=== PATIENT | female | born 2005 | race Caucasian/White ===

== ENCOUNTER 2024-08-12 09:04 | Emergency (ER) | payer OTHER, SELFPAY ==
[2024-08-12 09:18] VITALS: BP 108/72; PULSE 93; RESP 18; TEMP 37.3; O2SAT 98; BMI 20.5
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
--- OUTSIDE RECORDS SUMMARY | 2024-08-12 10:04 | XMS_ITS | Encounter Summary ---
Author Organization [employer] [facility] Address [address] [place] [id number] Care Team Providers Care Authorizer Name Role Phone Establish, Need To MD Primary Care Provider [phone] Reason for Visit * Reason Comments Annual Exam Stomach issue Encounter Details Date Type Department Care Team (Late st Contact Info) Description 05/14/2024 1:45 PM CDT Office Visit [facility] Medicine [address] [place] [id number] Silvia Summers PA-C [address] [place] [address] [phone] Wellness examination (Primary Dx); Screening for STDs (sexually transmitted diseases); Autonomic dysfunction; Hereditary essential tremor; Anxiety and depression; Generalized abdominal pain; Diarrhea, unspecified type Social History Tobacco Use Types Packs/Day Years Used Date Smoking Tobacco: Never Passive Smoke Exposure: Never Smokeless Tobacco: Never Alcohol Use Standard Drinks/Week Comments Never 0 (1 standard drink = 0.6 oz pur e alcohol) [facility] Utilities Answer Date Recorded In the past 12 months has [employer] electric, gas, oil, or water company threatened to shut off services in your home? No 05/13/2024 Social Connection and Isolat ion Panel [NHANES] Answer Date Recorded In a typical week, how many times do you talk on the phone with family, friends, or neighbors? More than three times a week 05/13/2024 How often do you get togethe r with friends or relatives? Three times a week 05/13/2024 How often do you attend chur ch or scientology services? Never 05/13/2024 Do you belong to any clubs o r organizations such as catholic groups, unions, fraternal or athletic groups, or school groups? Yes 05/13/2024 How often do you attend meet ings of the clubs or organizations you belong to? More than 4 times per year 05/13/2024 Are you , , di vorced, , never , or living with a partner? Never 05/13/2024 AUDIT-C Answer Date Recorded Q1: How often do you have a drink containing alc ohol? 2-4 times a month 05/13/2024 Q2: How many drinks containi ng alcohol do you have on a typical day when you are drinking? 3 or 4 05/13/2024 Q3: How often do you have si x or more drinks on one occasion? Monthly 05/13/2024 Overall Financial Resource Strain (CARDIA) Answe r Date Recorded How hard is it for you to pa y for the very basics like food, housing, medical care, and heating? Somewhat hard 05/13/2024 [facility] Occupat ional Health - Occupational Stress Questionnaire Answer Date Recorded Do you feel stress - tense, restless, nervous, or anxious, or unable to sleep at night because your mind is troubled all the time - these days? Only a little 05/13/2024 Exercise Vital Sign Answer Date Recorde d On average, how many days pe r week do you engage in moderate to strenuous exercise (like a brisk walk)? 5 days 05/13/2024 On average, how many minutes do you engage in exercise at this level? 30 min 05/13/2024 Hunger Vital Sign Answer Date Recorded Within the past 12 months, y ou worried that your food would run out before you got the money to buy more. Never true 05/13/20 24 Within the past 12 months, t he food you bought just didn't last and you didn't have money to get more. Never true 05/13/2024 PRAPARE - Transportation Answer Date Re corded In the past 12 months, has l ack of transportation kept you from medical appointments or from getting medications? No 05/02 In the past 12 months, has l ack of transportation kept you from meetings, work, or from getting things needed for daily living? No 05/13/2024 Housing Stability Vital Sign Answer Antonio e Recorded In the last 12 months, was t here a time when you were not able to pay the mortgage or rent on time? No 01/03/2023 In the last 12 months, how many places have you lived? 2 01/03/2023 In the last 12 months, was t here a time when you did not have a steady place to sleep or slept in a prison (including now)? No 01/03/2023 Housing Stability Vital Sign Answer Antonio e Recorded In the last 12 months, was t here a time when you were not able to pay the mortgage or rent on time? No 05/13/2024 In the last 12 months, how many places have you lived? 2 05/13/2024 In the last 12 months, was t here a time when you did not have a steady place to sleep or slept in a prison (including now)? No 05/13/2024 Depression (GHS) Answer Date Recorded PHQ2 Not on file 05/14/2024 PHQ4 Not on file 05/14/2024 PHQ-9 TOTAL SCORE 0 05/14/2024 Suicide Risk Alert Not on file 05/14/2024 Sex and Gender Information Value Date Recorded Sex Assigned at Female 03/23/2021 8:56 AM CDT Gender Identity Female 03/23/2021 8:56 AM CDT Sexual Orientation Not on file documented as of this encounter Last Filed Vital Signs Vital Sign Reading Time Taken Comments Blood Pressure 115/62 05/14/2024 1:27 PM CDT Pulse 65 05/14/2024 1:27 PM CDT Temperature - - Respiratory Rate - - Oxygen Saturation - - Inhaled Oxygen Concentration - - Weight 60.8 kg (134 lb) 05/14/2024 1:27 PM CDT Height 172.2 cm (5' 7.8) 05/14/2024 1:27 PM CDT Body Mass Index 20.5 05/14/2024 1:27 PM CDT documented in this encounter Ordered Prescriptions Prescription Sig Dispensed Refills Start Date End Da te sertraline (ZOLOFT) 50 mg tabletIndications:Anxiet y and depression Take 1.5 Tablets (75 mg) by mouth daily with breakfast 45 Tablet 2 05/14/2024 documented in this encounter Progress Notes * Silvia Summers PA-C - 05/14/2024 1:45 PM CDT Charisma Khanna [phone] Primary Care Providers: Establish, Need To, [facility] [place] May 14, 2024 Chief Complaint Patient presents with Annual Exam Stomach issue History of Present Illness: Charisma Schmidt is a 19 y.o. female. She presents for a preventative medicine visit and follow up of her medical problems. 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 Previously seen in Pediatrics. She is leaving to return to college this weekend for summer. 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 She has history of autonomic dysfunction and orthostasis managed with Levi Tavares in Pediatric Cardiology. She has been doing well with metoprolol 50 mg XL BID, symptoms are stable. She has Kyleena IUD, placed June 2021 and will need replacement prior to June 2026. She has history of essential tremor, however she does not report any issues with this today. Acute concerns addressed in clinic today: Roxana would like to discuss some stomach issues today. These have been ongoing. She reports having intermittent abdominal pain symptoms and loose stools, minimal diarrhea. She does have some urgency, no incontinence or bloody stools. No nighttime awakenings. No fevers or chills. No other constitutional symptoms including fever or rashes. She wonders about foot intolerance or IBS. She notes that her mother has IBS symptoms. She denies known FH of celiac or IBD. She notes that her mother bought her a probiotic to start taking. No new medications or new foods/exposures or travel. She also would like to discuss her sertraline. She wonders about going down on the dose. She has been taking 100 mg for some time and she feels her symptoms are managed well. She is happy and doing well. Contracts for safety. Patient Active Problem List Diagnosis Hypermetropia of both eyes Hereditary essential tremor Anxiety and depression Autonomic dysfunction Gynecology history The patient reports the following gynecologic problems: None. Menstrual cycle history: IUD . No LMP recorded. Patient has had an implant. Menstrual flow: not applicable. History of abnormal pap smear: NA . Contraception: IUD Health Maintenance Topic Date Due COVID-19 Vaccine (2022- season) 2023 DEPRESSION PHQ9 11/13/2024 DTaP/Tdap/Td Vaccine (6 - Td or Tdap) 04/06/2025 WELLNESS VISIT 05/14/2025 CHLAMYDIA SCREEN 05/14/2025 LIPID SCREEN 09/26/2026 Hepatitis B Vaccine Completed POLIO (IPV) Vaccine Completed HPV Vaccine Completed INFLUENZA Completed PERTUSSIS Completed PNEUMOCOCCAL AGES 0-64 YEARS Aged Out Depression screenin08/30/2021 4:09 PM 01/02/2022 3:43 PM 01/04/2023 11:04 AM 02/27/2024 5:50 PM 05/14/2024 1:26 PM PHQ9 REVIEW PHQ-9 TOTAL SCORE 3 2 3 1 0 Q9 Thoughts that you would be better off , or of hurting yourself in some way 0 0 0 0 0 Q10 If you checked off any problems, how difficult have these problems made it for you to do your work, take care of things at home, or get along with other people? Somewhat difficult Not difficult at all Not difficult at all Not difficult at all 08/30/2021 4:08 PM 01/02/2022 3:44 PM 01/04/2023 11:04 AM 02/27/2024 5:49 PM 05/14/2024 1:26 PM [id number]-7 SCORE 0 5 1 2 3 Past Medical History: Diagnosis Date Concussion 07/2014 Hereditary essential tremor 08/12/2020 Hypermetropia of both eyes 04/30/2017 Iron deficiency anemia, ferritin improved on supplement 09/26/2021 Stress fracture 2018 Bilateral tibias with soccer; next year in one leg Tachycardia 01/03/2022 At baseline and exaggerated H are response to exercise. Thought to be a form of automatic dysfunction (does not meet criteria for POTS). Past Surgical History: Procedure Laterality Date WISDOM TEETH EXTRACTION 04/2019 Current Outpatient Medications Medication Sig Dispense Refill ACETAMINOPHEN (TYLENOL PO) Take by mouth. cholecalciferol, VITAMIN D3, 2,000 unit capsule Take 1 Capsule (2,000 Units) by mouth daily IBUPROFEN PO Take by mouth. iron bis glycinate (GENTLE IRON) capsule Take 1 Capsule by mouth every other day levonorgestreL (KYLEENA) 17.5 mcg/24 hrs (5 yrs) 19.[address] 1 Each into uterus as directed: 1 Each 0 metoprolol succinate (TOPROL XL) 50 mg extended release tablet Take 1 Tablet (50 mg) by mouth 2 times daily 180 Tablet 4 PAPAIN PO Take by mouth sertraline (ZOLOFT) 50 mg tablet Take 1.5 Tablets (75 mg) by mouth daily with breakfast 45 Tablet 2 No current facility-administered medications for this visit. No Known Drug Allergies Family History Relation Problem Comments Father - José Miguel (Alive) Asthma childhood Mother - Dahiana (Alive) Anxiety Disorder Migraines Sister - Audrey (Alive) Anxiety Disorder Maternal Grandmother Anxiety Disorder Maternal Grandfather Alcohol Abuse Cancer Coronary Artery Disease angina Elevated Lipids Essential Tremor also in his mother Parkinsonism Paternal Grandmother Alcohol Abuse Anxiety Disorder COPD Coronary Artery Disease h/o CA in her mid 60s (with tobacco use history) Heart Attack Paternal Grandfather Diabetes Elevated Lipids Maternal Aunt - Bhavya (Alive) Anxiety Disorder Heart Attack at 42 had pulmonary embolism, with subsequent CA Hypertension Maternal great-grandfather (Alive) Stroke 70s Maternal great-grandmother (Alive) Stroke 80s Other Clotting Disorder Social History Socioeconomic History Marital status: Single Spouse name: Not on file Number of children: Not on file Years of education: Not on file Highest education level: Not on file Occupational History Not on file Tobacco Use Smoking status: Never Passive exposure: Never Smokeless tobacco: Never Vaping Use Vaping status: Never Used Substance and Sexual Activity Alcohol use: Never Drug use: Never Sexual activity: Not Currently Social History Narrative Charisma, (Roxana) is a college student at [employer] in [employer] with a major in geology. Over breaks, she lives at home with parents, José Miguel and Dahiana and her older sister, Audrey, (2005.) They live in [place], José Miguel is a anton and Dahiana is an RN, works for [employer]. She enjoys snowboarding. Review of systems: Reviewed and negative other than was discussed in HPI. Physical Exam BP 115/62 (BP Location: Right arm, Patient Position: Sitting, BP Cuff Size: Small Adult) Pulse 65 Ht 172.2 cm (5' 7.8) Wt 60.8 kg (134 lb) BMI 20.50 kg/m?? Gen: Patient is a well-developed, well-nourished 19 y.o.female in NAD. Alert, oriented, and cooperatively answers questions. Skin: Warm, dry, well-perfused. Intact without lesions or rashes. Appropriate skin turgor. No cyanosis, pallor, or jaundice appreciated. HEENT: Head: NCAT. Scalp pink without lesions or tenderness. Symmetric facial features. Eyes: eyelids, symmetric, no ptosis; conjunctiva pink w/o discharge and sclera white. PERRL. EOMI. Ears: Auricles w/o lesions, masses, or tenderness; canals patent w/o erythema, edema, or tenderness. Hearing grossly intact. Nose: Nares patent bilaterally. Septum midline and nasal mucosa pink and moist w/o erythema, drainage. Mouth/Throat: Buccal mucosa pink and moist w/o lesions or masses. Dentition is good and gingiva pink w/o lesions, erythema, or tenderness. Tongue midline and protrudes symmetrically. Palate rises with phonation and pharynx w/o erythema or exudate. Voice quality appropriate w/o audible hoarseness. Mucous membranes appear moist. Neck: Supple with no tracheal deviation or thyromegaly appreciated. No JVD or lymphadenopathy appreciated. Pulmonary: Breathing unlabored w/o accessory muscle use. CTA bilaterally. CV: RRR; no murmurs, gallops, or rubs appreciated. Breasts: not examined. Abdomen: Bowel sounds present. Soft and non-tender, non-distended. No guarding or rebound. No peritoneal signs. No CVA tenderness. Pelvic exam: exam declined by the patient. Extremities: Full ROM in all extremities bilaterally. No edema to upper or lower extremities. Neuro: Alert and oriented x3; nonfocal. CN II-XII grossly intact. Gait steady without ataxia. Psychiatric: Thought processes coherent and cooperative with appropriate mood and affect. Reports: Recent Results (from the past 168 hour(s)) SARAH CHLAMYDIA RNA Specimen: Vaginal; Swab Result Value Ref Range CHLAMYDIA RNA Negative Negative LAB IMMUNOGLOBULINS IGA Result Value Ref Range IMMUNOGLOBULINS IGA 311 70 - 312 mg/dl LAB TISSUE TRANSGLUTAMINASE ANTIBODY, IGA (REFERRAL) Result Value Ref Range TISSUE TRANSGLUTAMINASE (TTG) AB, IGA <1.02 0.00 - 4.99 FLU LAB LIPASE Result Value Ref Range LIPASE 20 13 - 60 IU/L LAB ELECTROLYTES Result Value Ref Range SODIUM 141 135 - 146 mmol/L POTASSIUM 3.9 3.4 - 5.0 mmol/L CARBON DIOXIDE-TOTAL 31 (H) 22 - 29 mmol/L CHLORIDE 101 96 - 108 mmol/L ANION GAP 9 6 - 16 mmol/L LAB CREATININE Result Value Ref Range CREATININE 0.70 0.51 - 0.95 mg/dL ESTIMATED GFR 127 mL/min/1.73m2 LAB GLUCOSE Result Value Ref Range GLUCOSE 78 70 - 99 mg/dL GLUCOSE HOURS FASTING 1 Hour LAB BILIRUBIN, TOTAL Result Value Ref Range BILIRUBIN, TOTAL 0.5 0.0 - 1.3 mg/dL LAB ALT Result Value Ref Range ALT 16 0 - 33 U/L LAB AST Result Value Ref Range AST 25 0 - 32 U/L LAB ALKALINE PHOSPHATASE Result Value Ref Range ALKP 79 35 - 104 U/L LAB ELECTRONIC CBC Result Value Ref Range WBC 6.63 3.70 - 10.40 K/uL RBC 4.03 4.00 - 5.20 M/uL HEMOGLOBIN 12.9 11.8 - 15.1 g/dL HEMATOCRIT 37.6 36.0 - 46.0 % MCV 93.3 82.0 - 99.0 fL MCH 32.0 27.0 - 32.0 pg MCHC 34.3 32.0 - 36.0 g/dL PLATELET COUNT 273 140 - 385 K/uL RDW-CV 11.7 (L) 11.8 - 15.6 % RDW-SD 40.8 34.0 - 50.0 fL ABS NEUT ELECTRONIC 4.08 2.00 - 8.70 K/uL ABS LYMPH ELECTRONIC 1.92 0.70 - 4.70 K/uL ABS MONO ELECTRONIC 0.49 0.00 - 1.10 K/uL ABS EOS ELECTRONIC 0.11 0.00 - 0.50 K/uL ABS BASO ELECTRONIC 0.02 0.00 - 0.20 K/uL ABS IMMATURE GRAN ELECTRONIC 0.01 0.00 - 0.04 K/uL Assessment & Plan: Assessment 1. Wellness examination 2. Screening for STDs (sexually transmitted diseases) 3. Autonomic dysfunction 4. Hereditary essential tremor 5. Anxiety and depression 6. Generalized abdominal pain 7. Diarrhea, unspecified type Wellness examination History is updated. Health maintenance reviewed and updated. Encouraged healthy lifestyle with plant rich diet and adequate physical activity, at least 150 minutes per week aerobic exercise. Encouraged regular dental cleanings and appropriate sunscreen use. Encouraged routine immunizations: Declines COVID booster today, otherwise UTD. Recommended screening tests: BP: 115/62 DM: glucose ordered with labs today. Cholesterol: UTD, next due 2025. Pap: not indicated due to age. Breast: breast exam not performed today, mammogram not indicated due to age. Screening for STDs (sexually transmitted diseases) - SARAH CHLAMYDIA RNA Autonomic dysfunction - chronic, well controlled with metoprolol, managed with Pediatric Cardiology, Levi Tavares PA-C Hereditary essential tremor - chronic, stable; no reported issues or concern, not on pharmacologic treatment Anxiety and depression - chronic, stable to improved; she has been on sertraline 100 mg however expresses interest in titrating down her dose to see how she does, given taper instructions and new prescription, will start with going down to 75 mg daily for a few weeks, if she is still doing well, she could then try down to 50 mg daily. She is encouraged to reach out with questions or concerns. She will be located in [place] for school and it would be reasonable to do virtual visits to follow-up on her mood, recommended visit in 6-8 weeks for med/mood check - sertraline (ZOLOFT) 50 mg tablet; Take 1.5 Tablets (75 mg) by [facility] Tablet, R-2 Generalized abdominal pain Diarrhea, unspecified type - acute on chronic with unclear etiology at this time - Hemodynamically stable, afebrile, non-toxic appearing in clinic today - reassuring abdominal exam without peritoneal signs, no indication for advanced imaging today - discussed proceeding with labs as below, including celiac ab screen, liver enzymes, lipase, and basic labs with CBC and renal function; will review these results with patient via [employer] and next steps - given chronicity and intermittent nature of symptoms, did forego stool cultures today, however this could be considered; she does not have known risk factors - she has not tried a probiotic or restrictive diet, cutting out gluten or dairy products, could also consider FODMAP diet - If symptoms do not improve with conservative dietary changes, then would discuss endoscopy, potentially upper and lower given the diarrhea symptoms and abdominal discomfort - recommend patient follow-up in next 1-2 months with recheck of symptoms and discussion of next steps in evaluation if indicated - Signs and symptoms to prompt return were discussed and patient expressed their understanding and agreement with the plan; questions solicited and answered to patient satisfaction. - LAB IMMUNOGLOBULINS IGA; Future - LAB TISSUE TRANSGLUTAMINASE ANTIBODY, IGA (REFERRAL); Future - LAB LIPASE; Future - LAB CBC W/DIFF; Future - LAB ELECTROLYTES; Future - LAB CREATININE; Future - LAB GLUCOSE; Future - LAB BILIRUBIN, TOTAL; Future - LAB ALT; Future - LAB AST; Future - LAB ALKALINE PHOSPHATASE; Future Other orders - PAPAIN PO; Take by mouthHistorical Med Orders Placed This Encounter Medications sertraline (ZOLOFT) 50 mg tablet Orders Placed This Encounter Procedures SARAH Chlamydia RNA LAB IMMUNOGLOBULINS IGA Lab Tissue Transglutaminase Antibody, IgA (REFERRAL) LAB LIPASE LAB CBC W/DIFF LAB ELECTROLYTES LAB CREATININE LAB GLUCOSE LAB BILIRUBIN, TOTAL LAB ALT LAB AST LAB ALKALINE PHOSPHATASE Follow-up: Return in about 8 weeks (around 07/09/2024) for recheck mood/sertraline decrease, well in 1 year. Otherwise sooner as needed. Dr. Reece was available for consultation during this visit. Silvia Summers PA-C documented in this encounter Plan of Treatment Not on file documented as of this encounter Procedures Procedure Name Priority Date/Time Associated Diagnosis Comments INFECTIOUS AGENT ANTIGEN DETECTION; CHLAMYDIA DNA/RNA ASSAY Routine 05/14/2024 2:13 PM CDT Screening for STDs (sexually transmitted diseases) documented in this encounter Results * LAB ALKALINE PHOSPHATASE (05/14/2024 2:21 PM CDT) ALKP 79 35 - 104 U/L 05/14/2024 2:57 PM CDT [facility] Blood 05/14/2024 2:21 PM CDT 05/14/2024 2:21 PM CDT Silvia Summers PA-C CHEMISTRY ORDERAB LES [address] [address] * LAB AST (05/14/2024 2:21 PM CDT) AST 25 0 - 32 U/L 05/14/2024 5:15 PM CDT [facility] Blood 05/14/2024 2:21 PM CDT 05/14/2024 2:21 PM CDT Silvia Summers PA-C CHEMISTRY ORDERAB LES Performing Organization Address City/[facility]/ZIP Co de Phone Number [facility] [address] [place] [address] * LAB ALT (05/14/2024 2:21 PM CDT) ALT 16 0 - 33 U/L 05/14/2024 2:57 PM CDT [facility] Blood 05/14/2024 2:21 PM CDT 05/14/2024 2:21 PM CDT Silvia Summers PA-C CHEMISTRY ORDERAB LES Performing Organization Address [facility] Co de Phone Number [address] [address] * LAB BILIRUBIN, TOTAL (05/14/2024 2:21 PM CDT) BILIRUBIN, TOTAL 0.5 0.0 - 1.3 mg/dL 05/14/2024 2:57 PM CDT [facility] Blood 05/14/2024 2:21 PM CDT 05/14/2024 2:21 PM CDT Silvia Summers PA-C CHEMISTRY ORDERAB LES Performing Organization Address [facility] Co de Phone Number [address] [address] * LAB GLUCOSE (05/14/2024 2:21 PM CDT) GLUCOSE 78 70 - 99 mg/dL 05/14/2024 2:57 PM [facility] GLU[facility]RS FASTING 1 Hour 05/14/2024 2:57 PM CDT [facility] Blood 05/14/2024 2:21 PM CDT 05/14/2024 2:21 PM CDT [facility] CHEMISTRY ORDERAB LES Performing Organization Address [facility] Co de Phone Number [address] [address] * LAB CREATININE (05/14/2024 2:21 PM CDT) CREATININE 0.70 0.51 - 0.95 mg/dL 05/14/2024 2:57 PM CDT [facility] ESTIMATED GFR 127 mL/min/1.7 3m2 05/14/2024 2:57 PM CDT [facility] Comment:Estimated GFR calcul ation based on the??Chronic Kidney Disease Epidemiology Collaboration (CKD-EPI) equation refit??without adjustment for race. Blood 05/14/2024 2:21 PM CDT 05/14/2024 2:21 PM CDT Silvia Summers PA-C CHEMISTRY ORDERAB LES Performing Organization Address [facility] Co de Phone Number [address] [address] * (ABNORMAL) LAB ELECTROLYTES (05/14/2024 2:21 PM CDT) SODIUM 141 135 - 146 mmol/L 05/14/2024 2:57 PM CDT [facility] POTASSIUM 3.9 3.4 - 5.0 mmol/L 05/14/2024 2:57 PM CDT [facility] CARBON DIOXIDE-TOTAL 31(H) 22 - 29 mmol/L 05/14/2024 2:57 PM CDT [facility] CHLORIDE 101 96 - 108 mmol/L 05/14/2024 2:57 PM CDT [facility] ANION GAP 9 6 - 16 mmol/L 05/14/2024 2:57 PM CDT [facility] Comment: Anion gap is calculated from Sodium minus the sum of the Chloride and Carbon Dioxide. Blood 05/14/2024 2:21 PM CDT 05/14/2024 2:21 PM CDT Silvia Summers PA-C CHEMISTRY ORDERAB LES Performing Organization Address [facility]/ZIP Co de Phone Number [address] [address] * LAB LIPASE (05/14/2024 2:21 PM CDT) LIPASE 20 13 - 60 IU/L 05/14/2024 2:57 PM CDT [facility] Blood 05/14/2024 2:21 PM CDT 05/14/2024 2:21 PM CDT Silvia Summers PA-C CHEMISTRY ORDERAB LES Performing Organization Address [facility] Co de Phone Number [address] [address] * LAB TISSUE TRANSGLUTAMINASE ANTIBODY, IGA (REFERRAL) (05/14/2024 2:21 PM CDT) TISSUE TRANSGLUTAMINASE (TTG) AB, IGA <1.02 0.00 - 4.99 FLU 05/17/2024 12:30 AM CDT [facility] Comment: INTERPRETIVE INFORMATION: Tissue Transglutaminase (tTG) ?Antibody, IgA Presence of the tissue transglutaminase (tTG) IgA antibody is associated with gluten-sensitive enteropathies such as celiac disease and dermatitis herpetiformis. Individuals with positive results should be confirmed with small intestinal biopsy to establish celiac disease diagnosis. tTG IgA antibody concentrations greater than 50 FLU exhibits higher correlation with results of duodenal biopsies consistent with celiac disease. For antibody concentrations greater than or equal to 5 FLU but less than 10 FLU, additional testing for endomysial (MEENU) IgA concentrations may improve the positive predictive value for disease. A decrease in tTG IgA antibody concentration after initiation of a gluten-free diet may indicate a response to therapy. Performed By: [facility] [address] [place] [address] [employer] Supervisor: Marshall Alves MD, PhD CLIA Number: [id number] Blood 05/14/2024 2:21 PM CDT 05/14/2024 2:21 PM CDT Silvia Summers PA-C REFERRAL ORDERABL ES Performing Organization Address [facility] Co de Phone Number [facility] [address] [place] [address] * LAB IMMUNOGLOBULINS IGA (05/14/2024 2:21 PM CDT) IMMUNOGLOBULINS IGA 311 70 - 312 mg/dl 05/14/2024 5:[address] [facility] Comment:Very high IgA levels (especially if due to a monoclonal gammopathy) may be falsely normal or low due to prozone effect. Please call [phone] for re-analysis if this problem is suspected. Specimens are held for 72 hours for re-analysis. Blood Venipuncture / Unknown 05/14/2024 2:21 PM CDT 05/14/2024 2:21 PM CDT Silvia Summers PA-C CHEMISTRY ORDERAB LES [facility] [address] [place] [address] * SARAH CHLAMYDIA RNA (05/14/2024 2:13 PM CDT) CHLAMYDIA RNA Negative Negative 05/15/2024 11:15 AM CDT [facility] Swab VAGINAL STRUCTURE / Unknown 05/14/2024 2:13 PM CDT 05/14/2024 2:32 PM CDT Narrative [facility] - 05/15/2024 11:15 AM CDT C. trachomatis testing by NAAT. Silvia Summers PA-C MICROBIOLOGY - [facility] ORDERABLES [facility] [address] [place] [address] documented in this encounter Visit Diagnoses Diagnosis Wellness examination- Primary Screening for STDs (sexually transmitted diseases) Screening examination for venereal disease Autonomic dysfunction Unspecified disorder of autonomic nervous system Hereditary essential tremor Essential and other specified forms of tremor Anxiety and depression Dysthymic disorder Generalized abdominal pain Abdominal pain, generalized Diarrhea, unspecified type documented in this encounter Discontinued Medications Medication Sig Discontinue Reason Start Date End Da te omeprazole (PRILOSEC) 20 mg delayed release capsule Take 1 Capsule (20 mg) by mouth daily Therapy completed 02/27/2024 05/14/2024 ascorbic acid, vitamin C, (VITAMIN C) 500 mg tablet Take 1 Tablet (500 mg) by mouth daily Therapy completed 05/14/2024 sertraline (ZOLOFT) 100 mg tablet Take 1 Tablet (100 mg) by mouth daily with breakfast Reorder 04/29/2024 05/14/2024 documented as of this encounter Historical Medications * This list may reflect changes made after this encounter. Medication Sig Dispensed Refills Start Date End Date PAPAIN PO Take by mouth added in this encounter Care Teams Authorizer Relationship Specialty Start Date End Date Establish, Need ToMD [address] [place] [address] PCP - General RUBBER COMPOUNDER 05/11/24 documented as of this encounter
--- OUTSIDE RECORDS SUMMARY | 2024-08-12 10:04 | XMS_ITS | Clinical Summary ---
Author Organization [facility] Address [address] [place] [address] Care Team Providers Care Fraud Analyst Name Role Phone Establish, Need To MD Primary Care Provider [phone] Source Comments If you need additional information that is not available on Care Everywhere, please contact our Medical Records Department during business hours (Saturday - Saturday, 8 am - 5 pm) at . During nonbusiness hours, please contact our Trauma and Emergency Center at .[facility] Allergies No known active allergies Medications * Medications may not be up to date as of this document. Always verify current medications with the patient. Medication Sig Dispensed Refills Start Date End Date Status IBUPROFEN PO Take by mouth. Active ACETAMINOPHEN (TYLENOL PO) Take by mouth. Active levonorgestreL (KYLEENA) 17.5 mcg/24 hrs (5 yrs) 19.[address] 1 Each into uterus as directed: 1 Each 06/29/2021 Active cholecalciferol, VITAMIN D3, 2,000 unit capsule Take 1 Capsule (2,000 Units) by mouth daily Active iron bis glycinate (GENTLE IRON) capsule Take 1 Capsule by mouth every other day 01/30/2024 Active metoprolol succinate (TOPROL XL) 50 mg extended release tablet Take 1 Tablet (50 mg) by mouth 2 times daily 180 Tablet 4 02/13/2024 05/08/2025 Active PAPAIN PO Take by mouth Active sertraline (ZOLOFT) 50 mg tabletIndications: Anxiety and depression Take 1.5 Tablets (75 mg) by mouth daily with breakfast 45 Tablet 2 05/14/2024 Active Active Problems Problem Noted Date Diagnosed Date Autonomic dysfunction 01/04/2023 Anxiety and depression 01/02/2022 Hereditary essential tremor 08/12/2020 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 Thought to be a form of automatic dysfunction (does not meet criteria for POTS). Fatigue 01/02/2022 01/04/2023 Iron deficiency anemia, ferr itin improved on supplement 09/26/2021 01/03/2022 Concussion without loss of consciousness 05/15/2016 09/02/2018 Overview (05/15/2016): Had two concussions in 2013. Concussion 07/02/2014 09/02/2018 Encounters Date Type Department Care Team Description 05/14/2024 2:20 PM CDT Lab Only LAB [address] [address] Silvia Summers PA-C Generalized abdominal pain; Diarrhea, unspecified type 05/14/2024 1:45 PM CDT Office Visit [address] [address] Silvia Summers PA-C Wellness examination (Primary Dx); Screening for STDs (sexually transmitted diseases); Autonomic dysfunction; Hereditary essential tremor; Anxiety and depression; Generalized abdominal pain; Diarrhea, unspecified type 05/14/2024 Interface Meds [address] [address] Silvia Summers PA-C from Last 3 Months Immunizations Name Administration Dates Next Due DTaP 10/18/2010,04/25/2007,05/29/2006 DTaP-Hepatitis B-IPV 08/09/2009,08/09/2009 HPV9 05/10/2017,05/15/2016 Hepatitis A, Unspecified 03/15/2014,10/18/2010 Hepatitis B-Hib 04/25/2007,05/29/2006 Influenza 12/12/2012,09/05/2011,10/18/2010 Influenza MDCK PF Quadrivalent 09/28/2019 Influenza Quadrivalent PF (d ose 0.5 mL) 11/15/2022,08/30/2021,12/01/2020,08/20,10/25/2017 Influenza Trivalent PF 12/12/2012,09/05/2011, Influenza, Unspecified 10/23/2023 MMR Live 10/18/2010,08/09/2009 Meningococcal B-Recombinant 08/12/2020 Meningococcal MCV4P 08/12/2020,04/06/2015 Moderna SARS-CoV-2 Bivalent (12 yrs and older) 09/06/2022 Pfizer SARS-CoV-2 (Purple Cap) 11/21/2021,2020,02/28/2021 Polio Injectable 04/25/2007,05/29/2006 Tdap 04/06/2015,04/25/2007,05/29/2006 Varicella Live 09/01/2006 Surgical History Surgery Date Site/Laterality Comments WISDOM TEETH EXTRACTION 04/01/2019 - 05/01/2019 Medical History Medical History Date Comments Concussion 07/2014 Stress fracture 2018 Bilateral tibias with soccer; next year in one leg Hereditary essential tremor 08/12/2020 Hypermetropia of both eyes 04/30/2017 Iron deficiency anemia, ferr itin improved on supplement 09/26/2021 Tachycardia 01/03/2022 At baseline and exaggerated H are response to exercise. Thought to be a form of automatic dysfunction (does not meet criteria for POTS). Family History Medical History Relation Name Comments Asthma Father José Miguel childhood Anxiety Disorder Maternal Aunt Bhavya Heart Attack Maternal Aunt Bhavya at 42 had pulm onary embolism, with subsequent GA Hypertension Maternal Aunt Bhavya Alcohol Abuse Maternal Grandfather Cancer Maternal Grandfather Coronary Artery Disease Maternal Grandfather angina Elevated Lipids Maternal Grandfather Essential Tremor Maternal Grandfather als o in his mother Parkinsonism Maternal Grandfather Anxiety Disorder Maternal Grandmother Stroke Maternal great-grandfather 7 0s Stroke Maternal great-grandmother 8 0s Anxiety Disorder Mother Junie Migraines Mother Junie Clotting Disorder Other Diabetes Paternal Grandfather Elevated Lipids Paternal Grandfather Alcohol Abuse Paternal Grandmother Anxiety Disorder Paternal Grandmother COPD Paternal Grandmother Coronary Artery Disease Paternal Grandmother h/o GA in her mid 60s (with tobacco use history) Heart Attack Paternal Grandmother Anxiety Disorder Sister Audrey Relation Name Status Comments Father José Miguel Alive Maternal Aunt Bhavya Alive Maternal Grandfather Maternal Grandmother Maternal great-grandfather Alive Maternal great-grandmother Alive Mother Junie Alive Other Paternal Grandfather Paternal Grandmother Sister Audrey Alive Social History Tobacco Use Types Packs/Day Years Used Date Smoking Tobacco: Never Passive Smoke Exposure: Never Smokeless Tobacco: Never Tobacco Cessation:Counseling Given: Not Answered Alcohol Use Standard Drinks/Week Comments Never 0 (1 standard drink = 0.6 oz pur e alcohol) [facility] Utilities Answer Date Recorded In the past 12 months has th e electric, gas, oil, or water company threatened [...] often do you attend chur ch or yazdanism services? Never 05/13/2024 Do you belong to any clubs o r organizations such as evangelical groups, unions, fraternal or athletic groups, or [...] medical care, and heating? Somewhat hard 05/13/2024 [facility] [place] [facility] - Occupational Stress Questionnaire Answer Date [...] place to sleep or slept in a fdc (including now)? No 01/03/2023 Housing Stability Vital [...] place to sleep or slept in a fdc (including now)? No 05/13/2024 Depression ([facility]) Answer Date Recorded PHQ2 Not on file 05/14/2024 PHQ4 Not on file 05/14/2024 PHQ-9 TOTAL SCORE 0 05/14/2024 Suicide Risk Alert Not on file 05/14/2024 Sex and Gender Information Value Date Recorded Sex Assigned at Female 03/23/2021 8:56 AM CDT Gender Identity Female 03/23/2021 8:56 AM CDT Sexual Orientation Not on file Obstetrics History Para Term AB IAB SAB Ectopic Molar Multiple Living Live Births 0 0 0 0 0 0 0 0 0 0 0 0 Last Filed Vital Signs Vital Sign Reading Time Taken Comments Blood Pressure 115/62 05/14/2024 1:27 PM CDT Pulse 65 05/14/2024 1:27 PM CDT Temperature 37.2 ??C (98.9 ??F) 12/28/2019 10:[address] Respiratory Rate 15 12/28/2019 10:12 AM TRAVELING INVENTORY ASSOCIATE Oxygen Saturation 98% 12/28/2019 10:12 AM TRAVELING INVENTORY ASSOCIATE Inhaled Oxygen Concentration - - Weight 60.8 kg (134 lb) 05/14/2024 1:27 PM CDT Height 172.2 cm (5' 7.8) 05/14/2024 1:27 PM CDT Body Mass Index 20.5 05/14/2024 1:27 PM CDT Plan of Treatment Health Maintenance Due Date Last Done Comments COVID-19 Vaccine ( season) 2024 09/06/2022, 11/21/2021, 03/21/2021, Additional history exists Influenza Vaccine (#1) 2024 , 11/15/2022, 08/30/2021, Additional history exists DEPRESSION PHQ9 11/13/2024 05/14/2024, 02/0 12/2021, 08/30/2021, Additional history exists DTaP/Tdap/Td Vaccine (6 - Td or Tdap) 04/06/2025 04/06/2015, 10/18/2010, 08/09/2009, Additional history exists CHLAMYDIA SCREEN 05/14/2025 05/14/2024, 01/04/2023 WELLNESS VISIT 05/14/2025 05/14/2024, 05/02, 01/04/2023, Additional history exists LIPID SCREEN 09/26/2026 09/26/2021 Hepatitis B Vaccine Completed 08/09/2009, 08/09/2009, 04/25/2007, Additional history exists POLIO (IPV) Vaccine Completed 08/09/2009, 08/09/2009, 04/25/2007, Additional history exists PERTUSSIS Completed 04/06/2015, 04/02, 05/29/2006 HPV Vaccine Completed 05/10/2017, 05/15/2016 PNEUMOCOCCAL AGES 0-64 YEARS Aged Out No longer eligible based on patient's age to complete this topic Procedures Procedure Name Priority Date/Time Associated Diagnosis Comments LAB ELECTRONIC CBC Routine 05/14/2024 2: 21 PM CDT Generalized abdominal pain Diarrhea, unspecified type LAB ALKALINE PHOSPHATASE Routine 024 2:21 PM CDT Generalized abdominal pain Diarrhea, unspecified type LAB AST Routine 05/14/2024 2:21 PM CDT Generalized abdominal pain Diarrhea, unspecified type LAB ALT Routine 05/14/2024 2:21 PM CDT Generalized abdominal pain Diarrhea, unspecified type LAB BILIRUBIN, TOTAL Routine 05/14/2024 2:21 PM CDT Generalized abdominal pain Diarrhea, unspecified type LAB GLUCOSE Routine 05/14/2024 2:21 PM CDT Generalized abdominal pain Diarrhea, unspecified type LAB CREATININE Routine 05/14/2024 2:21 PM CDT Generalized abdominal pain Diarrhea, unspecified type LAB ELECTROLYTES Routine 05/14/2024 2:21 PM CDT Generalized abdominal pain Diarrhea, unspecified type LAB CBC W/DIFF Routine 05/14/2024 2:21 PM CDT Generalized abdominal pain Diarrhea, unspecified type LAB LIPASE Routine 05/14/2024 2:21 PM CDT Generalized abdominal pain Diarrhea, unspecified type LAB TISSUE TRANSGLUTAMINASE ANTIBODY, IGA (REFERRAL) Routine 05/14/2024 2:21 PM CDT Generalized abdominal pain Diarrhea, unspecified type LAB IMMUNOGLOBULINS IGA Routine 05/14/20 2:21 PM CDT Generalized abdominal pain Diarrhea, unspecified type INFECTIOUS AGENT ANTIGEN DETECTION; CHLAMYDIA DNA/RNA ASSAY Routine 05/14/2024 2:13 PM CDT Screening for STDs (sexually transmitted diseases) LAB NON HDL CHOLESTEROL LIPID PANEL Routine 09/26/2021 11:08 AM CDT Screening for cholesterol level from Last 3 Months or Most Recently Relevant to Health Maintenance Results * LAB TISSUE TRANSGLUTAMINASE ANTIBODY, IGA (REFERRAL) (05/14/2024 2:21 PM CDT) TISSUE TRANSGLUTAMINASE (TTG) AB, IGA <1.02 0.00 - 4.99 FLU 05/17/2024 12:30 AM CDT [facility] Comment: INTERPRETIVE INFORMATION: Tissue Transglutaminase (tTG) ?Antibody, [...] indicate a response to therapy. Performed By: [facility] [address] [place] [address] Timber Hand: Marshall Alves MD, PhD CLIA Number: [id number] Blood 05/14/2024 2:21 PM CDT 05/14/2024 2:21 PM CDT Silvia Summers PA-C REFERRAL ORDERABL ES [facility] [address] [place] [address] * (ABNORMAL) LAB ELECTRONIC CBC (05/14/2024 2:21 PM CDT) WBC 6.63 3.70 - 10.40 K/uL 05/14/2024 2:[address] [facility] RBC 4.03 4.00 - 5.20 M/uL 05/14/2024 2:[address] [facility] HEMOGLOBIN 12.9 11.8 - 15.1 g/dL 05/14/2024 2:[address] [facility] HEMATOCRIT 37.6 36.0 - 46.0 % 05/14/2024 2:[address] [facility] MCV 93.3 82.0 - 99.0 fL 05/14/2024 2:[address] [facility] MCH 32.0 27.0 - 32.0 pg 05/14/2024 2:[address] [facility] MCHC 34.3 32.0 - 36.0 g/dL 05/14/2024 2:[address] [facility] PLATELET COUNT 273 140 - 385 K/uL 05/14/2024 2:[address] [facility] RDW-CV 11.7(L) 11.8 - 15.6 % 05/14/2024 2:[address] [facility] RDW-SD 40.8 34.0 - 50.0 fL 05/14/2024 2:[address] [facility] ABS NEUT ELECTRONIC 4.08 2.00 - 8.70 K/uL 05/14/2024 2:[address] [facility] ABS LYMPH ELECTRONIC 1.92 0.70 - 4.70 K/uL 05/14/2024 2:[address] [facility] ABS MONO ELECTRONIC 0.49 0.00 - 1.10 K/uL 05/14/2024 2:[address] [facility] ABS EOS ELECTRONIC 0.11 0.00 - 0.50 K/uL 05/14/2024 2:[address] [facility] ABS BASO ELECTRONIC 0.02 0.00 - 0.20 K/uL 05/14/2024 2:[address] [facility] ABS IMMATURE GRAN ELECTRONIC 0.01 0.00 - 0.04 K/uL 05/14/2024 2:[address] [facility] Blood 05/14/2024 2:21 PM CDT 05/14/2024 2:21 PM CDT Silvia Summers PA-C HEMATOLOGY ORDERA BLES Performing Organization Address City/[facility]/ZIP Co de Phone Number [address] [address] * LAB LIPASE (05/14/2024 2:21 PM CDT) LIPASE 20 13 - 60 IU/L 05/14/2024 2:[address] [facility] Blood 05/14/2024 2:21 PM CDT 05/14/2024 2:21 PM CDT Silvia Summers PA-C CHEMISTRY ORDERAB LES [address] [address] * LAB IMMUNOGLOBULINS IGA (05/14/2024 2:21 PM CDT) IMMUNOGLOBULINS IGA 311 70 - 312 mg/dl 05/14/2024 5:18 PM CDT [facility] Comment:Very high IgA levels (especially if due to a monoclonal gammopathy) may be falsely normal or low due to prozone effect. Please call [phone] for re-analysis if this problem is suspected. Specimens are held for 72 hours for re-analysis. Blood Venipuncture / Unknown 05/14/2024 2:21 PM CDT 05/14/2024 2:21 PM CDT Silvia Summers PA-C CHEMISTRY ORDERAB LES Performing Organization Address City/[facility]/ZIP Co de Phone Number [facility] [address] [place] [address] * LAB GLUCOSE (05/14/2024 2:21 PM CDT) GLUCOSE 78 70 - 99 mg/dL 05/14/2024 2:[address] [facility] GLUCOSE HOURS FASTING 1 Hour 05/14/2024 2:[address] [facility] Blood 05/14/2024 2:21 PM CDT 05/14/2024 2:[address] Summers CT- CHEMISTRY ORDERAB LES Performing Organization Address City/[facility]/ZIP Co de Phone Number [place] [phone] [place] [address] * (ABNORMAL) LAB ELECTROLYTES (05/14/2024 2:21 PM CDT) SODIUM 141 135 - 146 mmol/L 05/14/2024 2:[address] [facility] POTASSIUM 3.9 3.4 - 5.0 mmol/L 05/14/2024 2:[address] [facility] CARBON DIOXIDE-TOTAL 31(H) 22 - 29 mmol/L 05/14/2024 2:[address] [facility] CHLORIDE 101 96 - 108 mmol/L 05/14/2024 2:[address] [facility] ANION GAP 9 6 - 16 mmol/L 05/14/2024 2:[address] [facility] Comment: Anion gap is calculated from Sodium minus the sum of the Chloride and Carbon Dioxide. Blood 05/14/2024 2:21 PM CDT 05/14/2024 2:21 PM CDT Silvia Sotoments PA-C CHEMISTRY ORDERAB LES Performing Organization Address [facility]/ZIP Co de Phone Number [address] [address] * LAB CREATININE (05/14/2024 2:21 PM CDT) CREATININE 0.70 0.51 - 0.95 mg/dL 05/14/2024 2:[address] [facility] ESTIMATED GFR 127 mL/min/1.7 3m2 05/14/2024 2:[address] [facility] Comment:Estimated GFR calcul ation based on the??Chronic Kidney Disease Epidemiology Collaboration (CKD-EPI) equation refit??without adjustment for race. Blood 05/14/2024 2:21 PM CDT 05/14/2024 2:21 PM CDT Silvia Sotoments PA-C CHEMISTRY ORDERAB LES Performing Organization Address [facility] Co de Phone Number [address] [address] * LAB BILIRUBIN, TOTAL (05/14/2024 2:21 PM CDT) BILIRUBIN, TOTAL 0.5 0.0 - 1.3 mg/dL 05/14/2024 2:[address] [facility] Blood 05/14/2024 2:21 PM CDT 05/14/2024 2:21 PM CDT Silvia Summers PA-C CHEMISTRY ORDERAB LES Performing Organization Address [facility]/ZIP Co de Phone Number [address] [place] [address] * LAB AST (05/14/2024 2:21 PM CDT) AST 25 0 - 32 U/L 05/14/2024 5:15 PM CDT [facility] Blood 05/14/2024 2:21 PM CDT 05/14/2024 2:21 PM CDT Silvia Summers PA-C CHEMISTRY ORDERAB LES [facility] [address] [place] [address] * LAB ALT (05/14/2024 2:21 PM CDT) ALT 16 0 - 33 U/L 05/14/2024 2:[address] [facility] Blood 05/14/2024 2:21 PM CDT 05/14/2024 2:21 PM CDT Silvia Summers PA-C CHEMISTRY ORDERAB LES Performing Organization Address City/[facility]/ZIP Co de Phone Number [address] [address] * LAB ALKALINE PHOSPHATASE (05/14/2024 2:21 PM CDT) ALKP 79 35 - 104 U/L 05/14/2024 2:[address] [facility] Blood 05/14/2024 2:21 PM CDT 05/14/2024 2:21 PM CDT Silvia Summers PA-C CHEMISTRY ORDERAB LES Performing Organization Address [facility]/ZIP Co de Phone Number [address] [address] * SARAH CHLAMYDIA RNA (05/14/2024 2:13 PM CDT) CHLAMYDIA RNA Negative Negative 05/15/2024 11:15 AM CDT [facility] Swab VAGINAL STRUCTURE / Unknown 05/14/2024 2:13 PM CDT 05/14/2024 2:32 PM CDT Narrative [facility] - 05/15/2024 11:15 AM CDT C. trachomatis testing by NAAT. Silvia Summers PA-C MICROBIOLOGY - GE NERAL ORDERABLES Performing Organization Address City/[facility] Co de Phone Number [facility] [address] [place] [address] * LAB NON HDL CHOLESTEROL LIPID PANEL (09/26/2021 11:08 AM CDT) CHOLESTEROL 176 mg/dL 09/26/2021 11:47 AM CDT [facility] HDL CHOLESTEROL 60 mg/dL 11:47 AM CDT [facility] NON HDL CHOLESTEROL 116 <=119 mg/dL 09/26/2021 11:47 AM CDT [facility] Blood 09/26/2021 11:0 8 AM CDT 09/26/2021 11:26 AM CDT Narrative [facility] - 09/26/2021 11:47 AM CDT Interpretation: Total Cholesterol: Desirable; less than 170 mg/dL HDL Cholesterol: Desirable; greater than 39 mg/dL Non-HDL Cholesterol: Desirable; less than 120 mg/dL ? Borderline; 120 to 144 mg/dL ? High; greater than 144 mg/dL Levi Tavares PA-C CHEMISTRY ORDERABL ES Performing Organization Address City/[facility]/ZIP Co de Phone Number [facility] [address] [place] [address] from Last 3 Months or Most Recently Relevant to Health Maintenance Care Teams Fraud Analyst Relationship Specialty Start Date End Date Establish, Need To, [address] [place] [address] PCP - General GAUGE MAKER 05/11/24
--- OUTSIDE RECORDS SUMMARY | 2024-08-12 10:04 | XMS_ITS | Encounter Summary ---
Author Organization [facility] Address [address] [place] [address] Care Team Providers Care Art Class Model Name Role Phone Establish, Need To MD Primary Care Provider [phone] Reason for Visit * Reason Comments Medication Refill Encounter Details Date Type Department Care Team (Late st Contact Info) Description 11/22/2023 Refill [place] - [facility] [address] [place] [id number] Levi Tavares PA-C [address] [place] [phone] Medication Refill Social History Tobacco Use Types Packs/Day Years Used Date Smoking Tobacco: Never Smokeless Tobacco: Never Alcohol Use Standard Drinks/Week Comments Never 0 (1 standard drink = 0.6 oz pur e alcohol) Social Connection and Isolation Panel [NHANES] A nswer Date Recorded In a typical week, how many times do you talk on the phone with family, friends, or neighbors? Twice a week 01/03/2023 Frequency of Social Gatherings with Friends and Family Not on file 01/03/2023 Attends Sikhism Services Not on file 01/03 Active Member of Clubs or Organizations Not on f ile 01/03/2023 Attends Club or Organization Meetings Not on carla e 01/03/2023 Marital Status Not on file 01/03/2023 AUDIT-C Answer Date Recorded Q1: How often do you have a drink containing alc ohol? 2-4 times a month 01/03/2023 Q2: How many drinks containi ng alcohol do you have on a typical day when you are drinking? 3 or 4 01/03/2023 Q3: How often do you have si x or more drinks on one occasion? Less than monthly 01/03/2023 Overall Financial Resource Strain (CARDIA) Answe r Date Recorded How hard is it for you to pa y for the very basics like food, housing, medical care, and heating? Not very hard 01/03/2023 [facility] - Occupational Stress Questionnaire Answer Date Recorded Do you feel stress - tense, restless, nervous, or anxious, or unable to sleep at night because your mind is troubled all the time - these days? Only a little 01/03/2023 Exercise Vital Sign Answer Date Recorde d On average, how many days pe r week do you engage in moderate to strenuous exercise (like a brisk walk)? 7 days 01/03/2023 On average, how many minutes do you engage in exercise at this level? 50 min 01/03/2023 Hunger Vital Sign Answer Date Recorded Within the past 12 months, y ou worried that your food would run out before you got the money to buy more. Never true 01/03/20 23 Within the past 12 months, t he food you bought just didn't last and you didn't have money to get more. Never true 01/03/2023 PRAPARE - Transportation Answer Date Re corded In the past 12 months, has l ack of transportation kept you from medical appointments or from getting medications? No 01/2023 In the past 12 months, has l ack of transportation kept you from meetings, work, or from getting things needed for daily living? No 01/03/2023 Housing Stability Vital Sign Answer [...] place to sleep or slept in a senior living (including now)? No 01/03/2023 Depression (GHS) Answer Date Recorded PHQ2 Not on file 01/04/2023 PHQ4 Not on file 01/04/2023 PHQ-9 TOTAL SCORE 3 01/04/2023 Suicide Risk Alert Not on file 01/04/2023 Sex and Gender Information Value Date Recorded Sex Assigned at Female 03/23/2021 8:56 AM CDT Gender Identity Female 03/23/2021 8:56 AM CDT Sexual Orientation Not on file documented as of this encounter Ordered Prescriptions Prescription Sig Dispensed Refills Start Date End Da te metoprolol succinate (TOPROL XL) 100 mg extended release tablet Take 1 Tablet (100 mg) by mouth every evening 90 Tablet 11/22/2023 01/30/2024 documented in this encounter Miscellaneous Notes * Telephone Encounter - Renee Colon RN - 11/22/2023 10:07 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 Chart review completed. Last Rx ordered date. 12/24 Appointment status: completed labs in June. Unable to see in chart when Provider recommends follow up or review of Ferritin result and change in Iron supplement. Prescription pended for Provider review. 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
--- OUTSIDE RECORDS SUMMARY | 2024-08-12 10:04 | XMS_ITS | Encounter Summary ---
Author Organization [facility] Address [address] [place] [address] Care Team Providers Care Lot Worker Name Role Phone Establish, Need To MD Primary Care Provider [phone]- [phone] Encounter Details Date Type Department Care Team (Late st Contact Info) Description 05/14/2024 Interface [facility] - Family Medicine [address] [place] [phone] Silvia Summers PA-C [address] [place] [address] Social History Tobacco Use Types Packs/Day Years Used Date Smoking Tobacco: Never Passive Smoke Exposure: Never Smokeless Tobacco: Never Alcohol Use Standard Drinks/Week Comments Never 0 (1 standard drink = 0.6 oz pur e alcohol) [facility] Utilities Answer Date Recorded In the past 12 months has [employer], oil, or water [employer] threatened to shut off services in your [...] often do you attend chur ch or samaritan services? Never 05/13/2024 Do you belong to any clubs o r organizations such as restorationism groups, unions, fraternal or athletic groups, or [...] medical care, and heating? Somewhat hard 05/13/2024 [facility] of Occupat ional [facility] - Occupational Stress Questionnaire Answer Date [...] place to sleep or slept in a mcc (including now)? No 01/03/2023 Housing Stability Vital [...] place to sleep or slept in a mcc (including now)? No 05/13/2024 Depression (GHS) Answer Date Recorded PHQ2 Not on file 05/14/2024 PHQ4 Not on file 05/14/2024 PHQ-9 TOTAL SCORE 0 05/14/2024 Suicide Risk Alert Not on file 05/14/2024 Sex and Gender Information Value Date Recorded Sex Assigned at Female 03/23/2021 8:56 AM CDT Gender Identity Female 03/23/2021 8:56 AM CDT Sexual Orientation Not on file documented as of this encounter Plan of Treatment Not on file documented as of this encounter Visit Diagnoses Not on filedocumented in this encounter Care Teams Lot Worker Relationship Specialty Start Date End Date Establish, Need To, [address] [facility] [place] [place] [address] PCP - General ARTISTIC DIRECTOR 05/11/24 documented as of this encounter
--- OUTSIDE RECORDS SUMMARY | 2024-08-12 10:04 | XMS_ITS | Encounter Summary ---
Author Organization [employer] [facility] Address [address] [place] [address] Care Team Providers Care Sustainable Design Coordinator Name Role Phone Establish, Need To MD Primary Care Provider [phone] Encounter Details Date Type Department Care Team (Late st Contact Info) Description 05/14/2024 2:20 PM CDT Lab Only LAB [facility] [address] [place] [phone] Silvia Summers PA-C [address] [place] [phone] Generalized abdominal pain; Diarrhea, unspecified type Social History Tobacco Use Types Packs/Day Years Used Date Smoking Tobacco: Never Passive Smoke Exposure: Never Smokeless Tobacco: Never Alcohol Use Standard Drinks/Week Comments Never 0 (1 standard drink = 0.6 oz pur e alcohol) [facility] Utilities Answer Date Recorded In the past 12 months has [employer], gas, oil, or water [employer] threatened to shut off services in your [...] week 05/13/2024 How often do you attend [facility] or alevism services? Never 05/13/2024 Do you belong to any clubs o r organizations such as jain groups, unions, fraternal or athletic groups, or [...] medical care, and heating? Somewhat hard 05/13/2024 [facility] Health - Occupational Stress [...] place to sleep or slept in a half-way (including now)? No 01/03/2023 Housing Stability Vital [...] place to sleep or slept in a half-way (including now)? No 05/13/2024 Depression (GHS) Answer [...] Name Priority Date/Time Associated Diagnosis Comments LAB TISSUE TRANSGLUTAMINASE ANTIBODY, IGA (REFERRAL) Routine 05/14/2024 2:21 PM CDT Generalized abdominal pain Diarrhea, unspecified type LAB ELECTRONIC CBC Routine 05/14/2024 2: 21 [...] CDT Generalized abdominal pain Diarrhea, unspecified type documented in this encounter Results * (ABNORMAL) LAB ELECTRONIC CBC (05/14/2024 2:21 PM CDT) WBC 6.63 3.70 - 10.40 K/uL 05/14/2024 2:35 PM CDT [facility] RBC 4.03 4.00 - 5.20 M/uL 05/14/2024 2:35 PM CDT [facility] HEMOGLOBIN 12.9 11.8 - 15.1 g/dL 05/14/2024 2:35 PM CDT [facility] HEMATOCRIT 37.6 36.0 - 46.0 % 05/14/2024 2:35 PM CDT [facility] MCV 93.3 82.0 - 99.0 fL 05/14/2024 2:35 PM CDT [facility] MCH 32.0 27.0 - 32.0 pg 05/14/2024 2:35 PM CDT [facility] MCHC 34.3 32.0 - 36.0 g/dL 05/14/2024 2:35 PM CDT [facility] PLATELET COUNT 273 140 - 385 K/uL 05/14/2024 2:35 PM CDT [facility] RDW-CV 11.7(L) 11.8 - 15.6 % 05/14/2024 2:35 PM CDT [facility] RDW-SD 40.8 34.0 - 50.0 fL 05/14/2024 2:35 PM CDT [facility] ABS NEUT ELECTRONIC 4.08 2.00 - 8.70 K/uL 05/14/2024 2:35 PM CDT [facility] ABS LYMPH ELECTRONIC 1.92 0.70 - 4.70 K/uL 05/14/2024 2:35 PM CDT [facility] ABS MONO ELECTRONIC 0.49 0.00 - 1.10 K/uL 05/14/2024 2:35 PM CDT [facility] ABS EOS ELECTRONIC 0.11 0.00 - 0.50 K/uL 05/14/2024 2:35 PM CDT [facility] ABS BASO ELECTRONIC 0.02 0.00 - 0.20 K/uL 05/14/2024 2:35 PM CDT [facility] ABS IMMATURE GRAN ELECTRONIC 0.01 0.00 - 0.04 K/uL 05/14/2024 2:35 PM CDT [facility] Blood 05/14/2024 2:21 PM CDT 05/14/2024 2:21 PM CDT Silvia Summers PA-C HEMATOLOGY MIRELA NEWBERRYS [facility] [address] [place] [address] * LAB ALKALINE PHOSPHATASE (05/14/2024 2:21 PM CDT) ALKP 79 35 - 104 U/L 05/14/2024 2:57 PM CDT [facility] Blood 05/14/2024 2:21 PM CDT 05/14/2024 2:21 PM CDT Silvia Summers PA-C CHEMISTRY ORDERAB LES Performing Organization Address City/[facility]/ZIP Co de Phone Number [address] [address] * LAB AST (05/14/2024 2:21 PM CDT) AST 25 0 - 32 U/L 05/14/2024 5:15 PM CDT [facility] Blood 05/14/2024 2:21 PM CDT 05/14/2024 2:21 PM CDT Silvia Summers PA-C CHEMISTRY ORDERAB LES Performing Organization Address City/[facility]/ZIP Co de Phone Number [facility] [address] [place] [address] * LAB ALT (05/14/2024 2:21 PM CDT) ALT 16 0 - 33 U/L 05/14/2024 2:57 PM CDT [facility] Blood 05/14/2024 2:21 PM CDT 05/14/2024 2:21 PM CDT Silvia Summers PA-C CHEMISTRY ORDERAB LES Performing Organization Address City/[facility]/ZIP Co de Phone Number [address] [address] * LAB BILIRUBIN, TOTAL (05/14/2024 2:21 PM CDT) BILIRUBIN, TOTAL 0.5 0.0 - 1.3 mg/dL 05/14/2024 2:57 PM CDT [facility] Blood 05/14/2024 2:21 PM CDT 05/14/2024 2:21 PM CDT Silvia Sotoments PA-C CHEMISTRY ORDERAB LES [address] [address] * LAB GLUCOSE (05/14/2024 2:21 PM CDT) GLUCOSE 78 70 - 99 mg/dL 05/14/2024 2:57 PM CDT [facility] GLUCOSE HOURS FASTING 1 Hour 05/14/2024 2:57 PM CDT [facility] Blood 05/14/2024 2:21 PM CDT 05/14/2024 2:21 PM CDT Silvia Sotoments PA-C CHEMISTRY ORDERAB LES Performing Organization Address [facility]/ZIP Co de Phone Number [address] [address] * LAB CREATININE (05/14/2024 2:21 PM CDT) CREATININE 0.70 0.51 - 0.95 mg/dL 05/14/2024 2:57 PM CDT [facility] ESTIMATED GFR 127 mL/min/1.7 3m2 05/14/2024 2:57 PM CDT [facility] Comment:Estimated GFR calcul ation based on the??Chronic Kidney Disease Epidemiology Collaboration (CKD-EPI) equation refit??without adjustment for race. Blood 05/14/2024 2:21 PM CDT 05/14/2024 2:21 PM CDT Silvia Sotoments PA-C CHEMISTRY ORDERAB LES [address] [place] [address] * (ABNORMAL) LAB ELECTROLYTES (05/14/2024 2:21 PM CDT) SODIUM 141 135 - 146 mmol/L 05/14/2024 2:57 PM CDT [facility] POTASSIUM 3.9 3.4 - 5.0 mmol/L 05/14/2024 2:57 PM CDT [facility] CARBON DIOXIDE-TOTAL 31(H) 22 - 29 mmol/L 05/14/2024 2:57 PM CDT [facility] CHLORIDE 101 96 - 108 mmol/L 05/14/2024 2:57 PM CDT [facility] ANION GAP 9 6 - 16 mmol/L 05/14/2024 2:57 PM CDT [facility] Comment: Anion gap is calculated from Sodium minus the sum of the Chloride and Carbon Dioxide. Blood 05/14/2024 2:21 PM CDT 05/14/2024 2:21 PM CDT Silvia Summers PA-C CHEMISTRY ORDERAB LES [address] [address] * LAB LIPASE (05/14/2024 2:21 PM CDT) LIPASE 20 13 - 60 IU/L 05/14/2024 2:57 PM CDT [facility] Blood 05/14/2024 2:21 PM CDT 05/14/2024 2:21 PM CDT Silvia Summers PA-C CHEMISTRY ORDERAB LES [address] [address] * LAB TISSUE TRANSGLUTAMINASE ANTIBODY, IGA (REFERRAL) (05/14/2024 2:21 PM CDT) TISSUE TRANSGLUTAMINASE (TTG) AB, IGA <1.02 0.00 - 4.99 FLU 05/17/2024 12:30 AM CDT Pricing Assistant Comment: INTERPRETIVE INFORMATION: Tissue Transglutaminase (tTG) ?Antibody, [...] indicate a response to therapy. Performed By: [facility] [address] [place] [address] Literacy Tutor: Marshall Alves MD, PhD CLIA Number: [id number] Blood 05/14/2024 2:21 PM CDT 05/14/2024 2:21 PM CDT Silvia Summers PA-C REFERRAL ORDERABL ES Pricing Assistant [address] [place] [address] * LAB IMMUNOGLOBULINS IGA (05/14/2024 2:21 PM CDT) Pathologist [facility] IMMUNOGLOBULINS IGA 311 70 - 312 mg/dl 05/14/2024 5:18 PM CDT [facility] Comment:Very high IgA levels (especially if due to a monoclonal gammopathy) may be falsely normal or low due to prozone effect. Please call [phone] for re-analysis if this problem is suspected. Specimens are held for 72 hours for re-analysis. Blood Venipuncture / Unknown 05/14/2024 2:21 PM CDT 05/14/2024 2:21 PM CDT Silvia Summers PA-C CHEMISTRY ORDERAB LES [facility] [address] [place] [address] documented in this encounter Visit Diagnoses Diagnosis Generalized abdominal pain Abdominal pain, generalized Diarrhea, unspecified type documented in this encounter Care Teams Sustainable Design Coordinator Relationship Specialty Start Date End Date Establish, Need To, [address] [place] [address] PCP - General THERAPY ADMINISTRATIVE ASSISTANT 05/11/24 documented as of this encounter
[2024-08-12] MEDS: TETANUS/DIPHTH/PERTUSSIS 0.5 ML SYRINGE IM (10:26)
[2024-08-12] MEDS: cephALEXin 500 MG CAPSULE PO (10:27)
== END 2024-08-12 10:34 | disposition home or self-care (01) ==
PROVIDERS: Emergency Provider Family Medicine
DX: S91.312A Laceration without foreign body, left foot, initial encounter (principal); Z23 Encounter for immunization; V19.3XXA Pedal cyclist (driver) (passenger) injured in unspecified nontraffic accident, initial encounter
CPT/HCPCS: 12001; 90471; 90715; 99283; 99284; A9270